=== PATIENT | male | born 1950 | race Caucasian/White ===

== ENCOUNTER 2019-03-08 13:25 | Outpatient (CLI) | payer MEDICARE | END 2019-03-08 23:59 | disposition home or self-care (01) | LOC: CFH 13:25 | PROVIDERS: ATTEND Family Medicine | DX: R05 Cough (principal) | CPT/HCPCS: 71046 ==

== ENCOUNTER 2019-05-12 11:54 | Emergency (ER) | payer MEDICARE ==
[~2019-05-12] VITALS: Ht 182.9 cm; Wt 103.1 kg
[2019-05-12 12:20] VITALS: BP 130/88
--- NOTE | 2019-05-12 12:34 | NUR ---
PT BECAME VERBALLY AGGRESSIVE WHEN HE WANTED TO BE TESTED AND LEARNED THAT IT MAY TAKE LONGER THAN HE EXPECTED. PT STATES HE IS LEAVING. PT LEFT AMA
--- NOTE | 2019-05-12 12:37 | NUR ---
PT REFUSED SIGN AMA FORMS
== END 2019-05-12 12:36 | disposition left against medical advice (07) ==
LOC: ED 12:30
DX: R05 Cough (principal); R19.7 Diarrhea, unspecified; Z53.21 Procedure and treatment not carried out due to patient leaving prior to being seen by health care provider

== ENCOUNTER 2019-07-25 08:59 | Outpatient (CLI) | payer MEDICARE | END 2019-07-25 23:59 | disposition home or self-care (01) | LOC: CVU 08:59 | PROVIDERS: ATTEND Internal Medicine Cardiovascular Disease | DX: I35.8 Other nonrheumatic aortic valve disorders (principal) | CPT/HCPCS: 93306 ==

== ENCOUNTER → 2019-12-15 | Outpatient (CLI) | payer MEDICARE | END | disposition home or self-care (01) | LOC: RAD 13:11 | PROVIDERS: ATTEND Neurological Surgery | DX: M54.5 Low back pain (principal) | CPT/HCPCS: 72100 ==

== ENCOUNTER → 2020-07-19 | Outpatient (CLI) | payer MEDICARE | END | disposition home or self-care (01) | LOC: CFH 06:48 | PROVIDERS: ATTEND Registered Nurse | DX: Z01.810 Encounter for preprocedural cardiovascular examination (principal); I08.2 Rheumatic disorders of both aortic and tricuspid valves | CPT/HCPCS: 93306; 93356 ==